=== PATIENT | male | born 1945 | race Caucasian/White ===

== ENCOUNTER 2018-05-20 16:53 | Inpatient (IN) | payer MEDICARE ==
[~2018-05-20] VITALS: Ht 170.2 cm; Wt 82.3 kg
[~2018-05-20 16:53] MED LIST: AZEL6DRO6 OU; LISI10TA7 PO; PHEN100C23 PO; PHEN64.8 PO; ROSU5TAB PO; SOTA80TA PO
[2018-05-20 17:55] LABS: BASOPHILS % (AUTO) 0.2 % (0.0-5.0); EOSINOPHILS % (AUTO) 0.5 % (0.0-8.0); HEMATOCRIT 48.9 % (42-54); LYMPHOCYTES % (AUTO) 6.2 % (21.0-51.0); MEAN CORPUSCULAR HEMOGLOBIN 32.9 pg (27.0-33.0); MEAN CORPUSCULAR VOLUME 99.5 fL (79-99); MONOCYTES % (AUTO) 8.1 % (3.0-13.0); PLATELET COUNT (AUTO) 165 K/uL (130-400); RED BLOOD CELL COUNT(AUTO) 4.92 MIL/uL (4.50-6.20); RED CELL DISTRIBUTION WIDTH 13.8 % (11.0-15.5); WHITE BLOOD COUNT (AUTO) 12.7 K/uL (4.8-10.8)
[2018-05-20 18:06] LABS: CREATININE 1.1 mg/dL (0.5-1.5); INR 1.05 (0.85-1.15); PARTIAL THROMBOPLASTIN TIME 29.4 SEC (26.3-35.5); POTASSIUM 4.4 mmol/L (3.5-5.1)
[2018-05-20 18:09] LABS: ALBUMIN 3.4 g/dL (3.5-5.0); BILIRUBIN,TOTAL 0.3 mg/dL (0.2-1.0); TOTAL PROTEIN, SERUM 7.4 g/dL (6.0-8.3)
[2018-05-20] MEDS ORDERED: TRAMADOL HCL 50 MG TABLET ONE (19:05)
[2018-05-20 22:04] LABS: APPEARANCE,URINE Clear (CLEAR); BILIRUBIN,URINE Negative (NEGATIVE); COLOR,URINE Yellow (YELLOW); GLUCOSE, URINE (UA) Negative (NEGATIVE); KETONES,URINE Negative (NEGATIVE); LEUKOCYTE ESTERASE ,URINE Small (NEGATIVE); NITRATE,URINE Negative (NEGATIVE); OCCULT BLOOD,URINE Large (NEGATIVE); PROTEIN,URINE Trace (NEGATIVE); UROBILINOGEN,URINE 0.2 mg/dL (0.2-1.0)
[2018-05-20 22:16] LABS: BACTERIA,URINE Few /HPF (None Seen); RBC,URINE 26-50 /HPF (0-1); SQUAMOUS EPITHELIAL CELL,UR 0-2 /HPF (0-2); WBC,URINE 0-1 /HPF (0-1)
[2018-05-20] MEDS ORDERED: SODIUM CHLORIDE 0.9% 10 ML VIAL IVP PRN (23:45)
[2018-05-20] MEDS ORDERED: ONDANSETRON HCL MDV 20ML 2 MG/ML VIAL IVP PRN (23:45)
[2018-05-21] VITALS (7 sets, daily range): BP systolic 106–148; BP diastolic 66–75
[2018-05-21] MEDS: MORPHINE SULFATE 2 MG/ML 1ML SYG IVP PRN ×3 (00:33→15:56)
[2018-05-21 04:48] LABS: BASOPHILS % (AUTO) 0.5 % (0.0-5.0); EOSINOPHILS % (AUTO) 2.8 % (0.0-8.0); HEMATOCRIT 45.6 % (42-54); LYMPHOCYTES % (AUTO) 10.3 % (21.0-51.0); MEAN CORPUSCULAR HEMOGLOBIN 33.8 pg (27.0-33.0); MEAN CORPUSCULAR HGB CONC 34.3 g/dL (32.0-36.0); MEAN CORPUSCULAR VOLUME 98.8 fL (79-99); MONOCYTES % (AUTO) 7.2 % (3.0-13.0); NEUTROPHILS % (AUTO) 79.2 % (40.0-77.0); PLATELET COUNT (AUTO) 168 K/uL (130-400); RED BLOOD CELL COUNT(AUTO) 4.62 MIL/uL (4.50-6.20); RED CELL DISTRIBUTION WIDTH 13.9 % (11.0-15.5); WHITE BLOOD COUNT (AUTO) 11.9 K/uL (4.8-10.8)
[2018-05-21 04:58] LABS: INR 1.06 (0.85-1.15); PARTIAL THROMBOPLASTIN TIME 30.2 SEC (26.3-35.5); PROTHROMBIN TIME 11.1 SEC (9.6-11.6)
[2018-05-21 05:15] LABS: ALBUMIN 3.2 g/dL (3.5-5.0); BILIRUBIN,TOTAL 0.4 mg/dL (0.2-1.0); CREATININE 0.9 mg/dL (0.5-1.5)
[2018-05-21] MEDS ORDERED: CLOP75TA32 PO (11:01)
[2018-05-21] MEDS ORDERED: SOTA80TA PO (11:01)
[2018-05-21] MEDS ORDERED: RANI150T7 PO (11:01)
[2018-05-21] MEDS ORDERED: PHEN100C23 PO (11:01)
[2018-05-21] MEDS ORDERED: [UNRECOGNIZED DRUG - OTHER] OU PRN (15:10)
[2018-05-21] MEDS ORDERED: KETOROLAC TROMETHAMINE 30MG/ML IV SCH (16:00)
[2018-05-21] MEDS: RANITIDINE HCL 15 MG/1 ML PO SCH (16:46)
[2018-05-21] MEDS: PHENYTOIN SODIUM 100 MG ERCAP PO SCH (21:00)
[2018-05-21] MEDS: PHENOBARBITAL 64.8 MG PO SCH (21:00)
[2018-05-21] MEDS: SOTALOL HCL 80 MG TABLET PO SCH (21:44)
[2018-05-21] MEDS: TRAMADOL /APAP 37.5MG/325MG TAB PO PRN (21:56)
[2018-05-22 04:00] VITALS: BP 113/68
[2018-05-22] MEDS: TRAMADOL /APAP 37.5MG/325MG TAB PO PRN ×2 (06:35→13:06)
[2018-05-22 08:00] VITALS: BP 111/70
[2018-05-22] MEDS: PHENOBARBITAL 64.8 MG PO SCH ×2 (08:01→14:00)
[2018-05-22] MEDS: PHENYTOIN SODIUM 100 MG ERCAP PO SCH (08:01)
[2018-05-22] MEDS: RANITIDINE HCL 15 MG/1 ML PO SCH ×2 (08:01→18:00)
[2018-05-22] MEDS: ATORVASTATIN CALCIUM 10 MG TABLET PO SCH ×2 (08:03→08:23)
[2018-05-22] MEDS: SOTALOL HCL 80 MG TABLET PO SCH (08:22)
[2018-05-22] MEDS ORDERED: LISINOPRIL 10 MG TABLET PO SCH (09:00)
[2018-05-22] MEDS ORDERED: CLOPIDOGREL BISULFATE 75 MG TAB PO SCH (09:00)
[2018-05-22 11:00] VITALS: BP 107/68
[2018-05-22 16:00] VITALS: BP 113/76
[2018-05-22] MEDS ORDERED: TRAM-355 PO (16:06)
== END 2018-05-22 18:57 | disposition home or self-care (01) | DRG 605 ==
LOC: EDH 16:53 → EDHIP 22:40 → 4BH 23:37
PROVIDERS: ADMIT Hospitalist; ATTEND Hospitalist
DX: S70.01XA Contusion of right hip, initial encounter (principal); I69.351 Hemiplegia and hemiparesis following cerebral infarction affecting right dominant side; W01.0XXA Fall on same level from slipping, tripping and stumbling without subsequent striking against object, initial encounter; I10 Essential (primary) hypertension; Z82.0 Family history of epilepsy and other diseases of the nervous system; I25.10 Atherosclerotic heart disease of native coronary artery without angina pectoris; E78.5 Hyperlipidemia, unspecified; G40.909 Epilepsy, unspecified, not intractable, without status epilepticus; Z82.3 Family history of stroke; Z82.49 Family history of ischemic heart disease and other diseases of the circulatory system; Z88.5 Allergy status to narcotic agent; Y93.89 Activity, other specified; Y92.89 Other specified places as the place of occurrence of the external cause; Y99.8 Other external cause status
CPT/HCPCS: 36415; 71045; 72192; 73070; 73502; 80053; 81001; 85025; 85610; 85730; 97039; J1885

== ENCOUNTER 2020-08-16 06:33 | Inpatient (IN) | payer MEDICARE ==
[~2020-08-16] VITALS: Ht 170.2 cm; Wt 93.0 kg
[~2020-08-16 06:33] MED LIST changes: +CLOP75TA32 PO; +LISI10TA24 PO; -LISI10TA7 PO; +RANI150T7 PO; +TRAM-355 PO
[2020-08-16] MEDS ORDERED: ACETAMINOPHEN 325 MG TAB ONE (07:31)
[2020-08-16] MEDS ORDERED: CEFTRIAXONE 2GM VIAL ONE (07:31)
[2020-08-16] MEDS ORDERED: AZITHROMYCIN 250 MG TABLET PO ONE (07:31)
[2020-08-16 07:48] LABS: BASOPHILS % (AUTO) 0.1 % (0.0-5.0); HEMATOCRIT 48.5 % (42-54); LYMPHOCYTES % (AUTO) 9.5 % (21.0-51.0); MEAN CORPUSCULAR HEMOGLOBIN 32.5 pg (27.0-33.0); MEAN CORPUSCULAR VOLUME 95.7 fL (79-99); MONOCYTES % (AUTO) 7.2 % (3.0-13.0); NEUTROPHILS % (AUTO) 82.7 % (40.0-77.0); PLATELET COUNT (AUTO) 161 K/uL (130-400); RED BLOOD CELL COUNT(AUTO) 5.07 MIL/uL (4.50-6.20); RED CELL DISTRIBUTION WIDTH 13.8 % (11.0-15.5); WHITE BLOOD COUNT (AUTO) 7.8 K/uL (4.8-10.8)
[2020-08-16 08:06] LABS: INR 1.27 (0.85-1.15); PROTHROMBIN TIME 13.3 SEC (9.6-11.6)
[2020-08-16 08:08] LABS: PARTIAL THROMBOPLASTIN TIME 27.9 SEC (26.3-35.5)
[2020-08-16] MEDS: ENOXAPARIN SODIUM 40 MG/0.4 ML SYRINGE SQ SCH (08:24)
[2020-08-16] MEDS ORDERED: 0.9%NACL 1000ML 2,000 ML IV ONE (08:27)
[2020-08-16] MEDS ORDERED: DEXAMETHASONE SOD PHOSPHATE 10MG/ML 1ML VIAL ONE (08:27)
[2020-08-16 08:42] LABS: ABG BASE EXCESS 1.4 mmol/L (-2.0-3.0); ABG HCO3 23.6 mmol/L (21.0-28.0); ABG PCO2 31 mmHg (35-48)
[2020-08-16] MEDS ORDERED: ONDANSETRON 4MG INJ IVP PRN (09:30)
[2020-08-16] MEDS ORDERED: LACTULOSE 20 GM/30 ML UDCUP PO PRN (09:30)
[2020-08-16] MEDS ORDERED: CLONIDINE HCL 0.1 MG TABLET PO PRN (09:30)
[2020-08-16] MEDS ORDERED: ACETAMINOPHEN 650 MG SUPPOSITORY RC PRN (09:30)
[2020-08-16] MEDS ORDERED: ALBUTEROL INHALER 90MCG/INH IH PRN (09:30)
[2020-08-16 10:12] LABS: ALBUMIN 2.6 g/dL (3.5-5.0); BILIRUBIN,TOTAL 0.5 mg/dL (0.2-1.0); POTASSIUM 3.2 mmol/L (3.5-5.1); TOTAL PROTEIN, SERUM 7.3 g/dL (6.0-8.3); TROPONIN I 0.07 ng/mL (0.00-0.06)
[2020-08-16] MEDS: INSULIN HUMULIN R 100 UNIT/ML 3ML SQ SCH ×3 (11:30→21:00)
[2020-08-16] MEDS ORDERED: ALBUTEROL INHALER 90MCG/INH IH ONE (14:56)
[2020-08-16 15:14] LABS: APPEARANCE,URINE Cloudy (CLEAR); BILIRUBIN,URINE Small (NEGATIVE); COLOR,URINE Dark Yellow (YELLOW); GLUCOSE, URINE (UA) Negative (NEGATIVE); KETONES,URINE Trace mg/dL (NEGATIVE); LEUKOCYTE ESTERASE ,URINE Small (NEGATIVE); NITRATE,URINE Negative (NEGATIVE); OCCULT BLOOD,URINE Small (NEGATIVE); PH,URINE 5.5 (5.0-8.0); PROTEIN,URINE 300 mg/dL (NEGATIVE)
[2020-08-16 15:19] LABS: BACTERIA,URINE Few /HPF (None Seen)
[2020-08-16 15:20] LABS: SQUAMOUS EPITHELIAL CELL,UR Few /HPF (0-2)
[2020-08-16] MEDS ORDERED: METOPROLOL TARTRATE 50 MG TAB ONE (16:29)
[2020-08-16] MEDS ORDERED: PHENOBARBITAL 30 MG TAB PO SCH (21:00)
[2020-08-16] MEDS ORDERED: PHENYTOIN SODIUM 100 MG ERCAP PO SCH (21:00)
[2020-08-16] MEDS ORDERED: FAMOTIDINE 20MG TAB PO SCH (21:00)
[2020-08-16] MEDS ORDERED: PHARMACY COMMUNICATION**REMDESIVIR ORDER MISC SCH (21:00)
[2020-08-16] MEDS: METOPROLOL TARTRATE 25 MG TAB PO SCH (21:00)
[2020-08-16] MEDS ORDERED: FAMOTIDINE 20MG TAB ONE (21:45)
[2020-08-16] MEDS ORDERED: ONDANSETRON 4MG INJ ONE (21:45)
[2020-08-16] MEDS ORDERED: ENOXAPARIN SODIUM 40 MG/0.4 ML SYRINGE SQ ONE (21:46)
[2020-08-16] MEDS ORDERED: PHENYTOIN SODIUM 100 MG ERCAP PO ONE (22:42)
[2020-08-17] MEDS ORDERED: METOPROLOL TARTRATE 25 MG TAB ONE ×3 (00:59→15:28)
[2020-08-17] MEDS ORDERED: ACETAMINOPHEN 325 MG TAB ONE (01:09)
[2020-08-17 04:57] LABS: ABG BASE EXCESS -1.1 mmol/L (-2.0-3.0); ABG OXYGEN SATURATION 89.8 % (95.0-99.0); ABG PCO2 33 mmHg (35-48)
[2020-08-17 05:24] LABS: BASOPHILS % (AUTO) 0.1 % (0.0-5.0); HEMATOCRIT 40.7 % (42-54); LYMPHOCYTES % (AUTO) 7.7 % (21.0-51.0); MEAN CORPUSCULAR HEMOGLOBIN 32.1 pg (27.0-33.0); MEAN CORPUSCULAR HGB CONC 34.2 g/dL (32.0-36.0); MONOCYTES % (AUTO) 3.1 % (3.0-13.0); NEUTROPHILS % (AUTO) 88.5 % (40.0-77.0); PLATELET COUNT (AUTO) 180 K/uL (130-400); RED BLOOD CELL COUNT(AUTO) 4.33 MIL/uL (4.50-6.20); RED CELL DISTRIBUTION WIDTH 13.4 % (11.0-15.5); WHITE BLOOD COUNT (AUTO) 12.7 K/uL (4.8-10.8)
[2020-08-17 05:35] LABS: B-TYPE NATRIURETIC PEPTIDE 161 pg/mL (0-100)
[2020-08-17 05:49] LABS: CREATININE 0.9 mg/dL (0.5-1.5); MAGNESIUM 1.8 mg/dL (1.80-2.40); PHOSPHORUS 2.6 mg/dL (2.5-4.9); POTASSIUM 3.1 mmol/L (3.5-5.1); THYROID STIMULATING HORMONE 0.27 uIU/mL (0.36-3.74)
[2020-08-17] MEDS ORDERED: METOPROLOL TARTRATE 1 MG/ML 5ML VIAL IV ONE (06:52)
[2020-08-17] MEDS: INSULIN HUMULIN R 100 UNIT/ML 3ML SQ SCH ×4 (07:30→21:00)
[2020-08-17] MEDS: ASCORBIC ACID 500 MG TAB PO SCH (08:25)
[2020-08-17] MEDS: POLYETHYLENE GLYCOL 3350 17 GM POWD.PACK PO SCH (08:25)
[2020-08-17] MEDS: CEFTRIAXONE 1G VIAL IVP SCH (08:25)
[2020-08-17] MEDS: FUROSEMIDE 20MG VIAL IV SCH (08:26)
[2020-08-17] MEDS: DEXAMETHASONE SOD PHOSPHATE 4 MG/ML 1ML VIAL IVP SCH ×2 (08:26→21:00)
[2020-08-17] MEDS: AZITHROMYCIN 500MG+NS 250ML IV SCH (09:00)
[2020-08-17] MEDS: METOPROLOL TARTRATE 25 MG TAB PO SCH ×2 (09:00→21:00)
[2020-08-17] MEDS: ENOXAPARIN SODIUM 40 MG/0.4 ML SYRINGE SQ SCH ×2 (09:00→21:00)
[2020-08-17] MEDS ORDERED: DEXAMETHASONE SOD PHOSPHATE 4 MG/ML 1ML VIAL IVP SCH (09:00)
[2020-08-17] MEDS: ASPIRIN 81MG CHEW TAB PO SCH (09:00)
[2020-08-17] MEDS: PHENOBARBITAL 1/4 GR TABLET PO SCH ×3 (09:00→21:00)
[2020-08-17] MEDS ORDERED: METOPROLOL TARTRATE 1 MG/ML 5ML VIAL IV PRN (11:00)
[2020-08-17] MEDS ORDERED: DEXAMETHASONE SOD PHOSPHATE 10MG/ML 1ML VIAL ONE (11:10)
[2020-08-17] MEDS ORDERED: ASPIRIN 81MG CHEW TAB ONE (11:10)
[2020-08-17] MEDS ORDERED: PHENYTOIN SODIUM 100 MG ERCAP PO ONE ×2 (11:11→22:12)
[2020-08-17] MEDS ORDERED: ASCORBIC ACID 500 MG TAB ONE (11:11)
[2020-08-17] MEDS ORDERED: ENOXAPARIN SODIUM 40 MG/0.4 ML SYRINGE SQ ONE (11:12)
[2020-08-17] MEDS ORDERED: FAMOTIDINE 20MG TAB ONE (11:12)
[2020-08-17] MEDS ORDERED: POLYETHYLENE GLYCOL 3350 17 GM POWD.PACK ONE (11:12)
[2020-08-17] MEDS ORDERED: AZITHROMYCIN 500MG+NS 250ML 250 ML IV ONE ×2 (11:13→19:26)
[2020-08-17] MEDS ORDERED: DILTIAZEM 125 MG/25 ML INJ 125 MG in 0.9%NACL 100ML 100 ML IV PRN (12:00)
[2020-08-17] MEDS ORDERED: DILTIAZEM 25MG INJ IVP PRN (12:00)
[2020-08-17 14:46] LABS: ABG HCO3 20.4 mmol/L (21.0-28.0); ABG PCO2 29 mmHg (35-48)
[2020-08-17] MEDS ORDERED: PHENOBARBITAL 1/4 GR TABLET PO ONE (15:14)
[2020-08-17] MEDS ORDERED: REMDESIVIR (EUA) 520 200 MG in 0.9% NACL 250ML 250 ML IV ONE (16:00)
[2020-08-17] MEDS ORDERED: COMPOUND IV REFRIGERATED 1 EACH IVSOLN MISC PRN (16:00)
[2020-08-17] MEDS ORDERED: ACETAMINOPHEN 650 MG/20.3 ML UDCUP ONE (16:40)
[2020-08-17] MEDS ORDERED: LIDOCAINE HCL-MPF 1% 2ML VIAL IV PRN ×2 (17:00)
[2020-08-17] MEDS ORDERED: KCL 20 MEQ ERTAB PO PRN (17:00)
[2020-08-17] MEDS ORDERED: MAGNESIUM 2GM PREMIX 50ML 50 ML IV SCH (17:00)
[2020-08-17] MEDS ORDERED: POTASSIUM CHLORIDE 20MEQ/100ML 100 ML IV PRN (17:00)
[2020-08-17] MEDS ORDERED: KCL 20 MEQ ERTAB PO ONE (17:15)
[2020-08-17] MEDS ORDERED: LORAZEPAM 2 MG/ML 1 ML VIAL ONE ×2 (18:40→22:44)
[2020-08-17] MEDS ORDERED: CEFTRIAXONE 1G VIAL ONE (19:26)
[2020-08-17] MEDS ORDERED: DEXAMETHASONE SOD PHOSPHATE 4 MG/ML 1ML VIAL ONE (19:26)
[2020-08-18] VITALS (28 sets, daily range): BP systolic 78–186; BP diastolic 50–120
[2020-08-18] MEDS ORDERED: NALOXONE HCL 0.4 MG/1 ML ML ONE (01:07)
[2020-08-18] MEDS ORDERED: PROPOFOL 1000 MG/100 ML 100 ML IV ONE ×3 (01:31→13:07)
[2020-08-18] MEDS ORDERED: ADENOSINE 6MG VIAL IV ONE (01:41)
[2020-08-18 03:36] LABS: ABG BASE EXCESS -11.1 mmol/L (-2.0-3.0); ABG HCO3 15.5 mmol/L (21.0-28.0); ABG OXYGEN SATURATION 91.1 % (95.0-99.0); ABG PCO2 37 mmHg (35-48)
[2020-08-18] MEDS ORDERED: VECURONIUM 10MG/10ML IV ONE (04:20)
[2020-08-18] MEDS ORDERED: 0.9%NACL 50ML 50 ML IV ONE (04:20)
[2020-08-18] MEDS: FUROSEMIDE 20MG VIAL IV SCH ×2 (04:30→16:30)
[2020-08-18] MEDS ORDERED: DILTIAZEM 125 MG/25 ML INJ IV ONE (05:37)
[2020-08-18] MEDS ORDERED: 0.9%NACL 100ML 100 ML IV ONE (05:40)
[2020-08-18] MEDS: PHARMACY COMMUNICATION MISC SCH (06:00)
[2020-08-18 07:29] LABS: HEMATOCRIT 43.2 % (42-54); MEAN CORPUSCULAR HGB CONC 32.6 g/dL (32.0-36.0); RED BLOOD CELL COUNT(AUTO) 4.41 MIL/uL (4.50-6.20); RED CELL DISTRIBUTION WIDTH 14.2 % (11.0-15.5)
[2020-08-18] MEDS: INSULIN HUMULIN R 100 UNIT/ML 3ML SQ SCH ×4 (07:30→21:00)
[2020-08-18 07:43] LABS: CREATININE 0.9 mg/dL (0.5-1.5); POTASSIUM 4.3 mmol/L (3.5-5.1)
[2020-08-18] MEDS: ASPIRIN 81MG CHEW TAB PO SCH (08:31)
[2020-08-18] MEDS: POLYETHYLENE GLYCOL 3350 17 GM POWD.PACK PO SCH (08:31)
[2020-08-18] MEDS ORDERED: ACETAMINOPHEN 650 MG SUPPOSITORY RC ONE (08:37)
[2020-08-18] MEDS: CEFTRIAXONE 1G VIAL IVP SCH (09:00)
[2020-08-18] MEDS: METOPROLOL TARTRATE 25 MG TAB PO SCH ×2 (09:00→21:00)
[2020-08-18] MEDS: PHENOBARBITAL 1/4 GR TABLET PO SCH ×3 (09:00→21:00)
[2020-08-18] MEDS: DEXAMETHASONE SOD PHOSPHATE 4 MG/ML 1ML VIAL IVP SCH ×2 (09:00→21:00)
[2020-08-18] MEDS: AZITHROMYCIN 500MG+NS 250ML IV SCH (09:00)
[2020-08-18] MEDS: ASCORBIC ACID 500 MG TAB PO SCH (09:00)
[2020-08-18] MEDS: ENOXAPARIN SODIUM 40 MG/0.4 ML SYRINGE SQ SCH ×2 (09:00→21:00)
[2020-08-18] MEDS ORDERED: FENTANYL CITRATE PF 0.05 MG/ML 1,000 MCG in 0.9%NACL 100ML 100 ML IVPB SCH (12:15)
[2020-08-18] MEDS ORDERED: MIDAZOLAM 100MG-0.9% NS 100ML 100ML BAG IV ONE (12:15)
[2020-08-18] MEDS ORDERED: AMIODARONE 150MG VIAL 150 MG in DEXTROSE 5%-WATER 100 ML IV SCH (12:15)
[2020-08-18] MEDS ORDERED: AMIODARONE 900MG VIAL 450 MG in DEXTROSE 5%-WATER 250 ML IV SCH (12:15)
[2020-08-18] MEDS ORDERED: MIDAZOLAM 100MG-0.9% NS 100ML 100 ML IV SCH (12:30)
[2020-08-18 14:09] LABS: BILIRUBIN,DIRECT 0.1 mg/dL (0.0-0.3); BILIRUBIN,TOTAL 0.2 mg/dL (0.2-1.0); TOTAL PROTEIN, SERUM 6.1 g/dL (6.0-8.3)
[2020-08-18 15:34] LABS: CREATININE 1.2 mg/dL (0.5-1.5); POTASSIUM 4.3 mmol/L (3.5-5.1)
[2020-08-18 15:39] LABS: ALBUMIN 1.7 g/dL (3.5-5.0); BILIRUBIN,TOTAL 0.2 mg/dL (0.2-1.0); MAGNESIUM 2.3 mg/dL (1.80-2.40); PHOSPHORUS 2.9 mg/dL (2.5-4.9); TOTAL PROTEIN, SERUM 5.6 g/dL (6.0-8.3)
[2020-08-18] MEDS: FENTANYL 2500MCG+NS 250ML 250 ML IV SCH (16:35)
[2020-08-18] MEDS: REMDESIVIR (EUA) 520 100 MG in 0.9% NACL 250ML 250 ML IV SCH (16:38)
[2020-08-18 17:26] LABS: ABG BASE EXCESS -4.1 mmol/L (-2.0-3.0); ABG OXYGEN SATURATION 97.8 % (95.0-99.0); ABG PCO2 39 mmHg (35-48)
[2020-08-18] MEDS ORDERED: NOREPINEPHRIN 4MG/NS 250ML 250 ML IV SCH (17:45)
[2020-08-18] MEDS ORDERED: NOREPINEPHRIN 4MG/NS 250ML 250 ML IV ONE (17:50)
[2020-08-18] MEDS ORDERED: PHENYLEPHRINE HCL 100 MG in 0.9% NACL 250ML 250 ML IV SCH (18:15)
[2020-08-18] MEDS ORDERED: FAMOTIDINE 20MG VIAL IV ONE (23:14)
[2020-08-19] VITALS (85 sets, daily range): BP systolic 87–171; BP diastolic 41–95
[2020-08-19] MEDS: FUROSEMIDE 20MG VIAL IV SCH ×2 (04:30→15:31)
[2020-08-19 05:17] LABS: HEMATOCRIT 42.7 % (42-54); MEAN CORPUSCULAR HGB CONC 32.6 g/dL (32.0-36.0); MEAN CORPUSCULAR VOLUME 98.2 fL (79-99); RED BLOOD CELL COUNT(AUTO) 4.35 MIL/uL (4.50-6.20); WHITE BLOOD COUNT (AUTO) 11.6 K/uL (4.8-10.8)
[2020-08-19 05:33] LABS: CREATININE 1.1 mg/dL (0.5-1.5); CRP QUANTITATIVE 96.9 mg/L (0.00-9.0); POTASSIUM 3.5 mmol/L (3.5-5.1)
[2020-08-19] MEDS: PHARMACY COMMUNICATION MISC SCH (06:00)
[2020-08-19 06:54] LABS: ABG BASE EXCESS -3.1 mmol/L (-2.0-3.0); ABG HCO3 21.3 mmol/L (21.0-28.0); ABG OXYGEN SATURATION 99.3 % (95.0-99.0); ABG PCO2 37 mmHg (35-48)
[2020-08-19] MEDS: INSULIN HUMULIN R 100 UNIT/ML 3ML SQ SCH ×4 (07:30→21:00)
[2020-08-19] MEDS: PHENOBARBITAL 1/4 GR TABLET PO SCH ×3 (09:00→21:03)
[2020-08-19] MEDS ORDERED: AZITHROMYCIN 500MG+NS 250ML 250 ML IV SCH (09:00)
[2020-08-19] MEDS: AZITHROMYCIN 500MG+NS 250ML IV SCH (09:00)
[2020-08-19] MEDS: FAMOTIDINE 20MG VIAL IV SCH ×2 (09:13→21:04)
[2020-08-19] MEDS: POLYETHYLENE GLYCOL 3350 17 GM POWD.PACK PO SCH (09:14)
[2020-08-19] MEDS: CEFTRIAXONE 1G VIAL IVP SCH (09:14)
[2020-08-19] MEDS: ASPIRIN 81MG CHEW TAB PO SCH (09:14)
[2020-08-19] MEDS: DEXAMETHASONE SOD PHOSPHATE 4 MG/ML 1ML VIAL IVP SCH ×2 (09:14→21:05)
[2020-08-19] MEDS: METOPROLOL TARTRATE 25 MG TAB PO SCH ×2 (09:15→21:03)
[2020-08-19] MEDS: ASCORBIC ACID 500 MG TAB PO SCH (09:15)
[2020-08-19] MEDS: ENOXAPARIN SODIUM 40 MG/0.4 ML SYRINGE SQ SCH ×2 (09:15→21:06)
[2020-08-19] MEDS: FENTANYL 2500MCG+NS 250ML 250 ML IV SCH ×3 (09:46→16:32)
[2020-08-19 16:13] LABS: ALANINE AMINOTRANSFERASE 54 U/L (12-78); ASPARTATE AMINOTRANSFERASE 88 U/L (10-37)
[2020-08-19] MEDS: REMDESIVIR (EUA) 520 100 MG in 0.9% NACL 250ML 250 ML IV SCH (17:02)
[2020-08-19] MEDS: PHENYTOIN 100MG (50MG/ML) INJ 100 MG/2 ML ML IV SCH (21:04)
[2020-08-20] VITALS (47 sets, daily range): BP systolic 95–145; BP diastolic 57–88
[2020-08-20] MEDS: FENTANYL 2500MCG+NS 250ML 250 ML IV SCH ×3 (02:38→17:08)
[2020-08-20 04:00] LABS: ABG BASE EXCESS -3.4 mmol/L (-2.0-3.0); ABG HCO3 21.1 mmol/L (21.0-28.0); ABG OXYGEN SATURATION 91.6 % (95.0-99.0); ABG PCO2 36 mmHg (35-48)
[2020-08-20 04:22] LABS: HEMATOCRIT 41.2 % (42-54); MEAN CORPUSCULAR HEMOGLOBIN 31.8 pg (27.0-33.0); MEAN CORPUSCULAR VOLUME 96.3 fL (79-99); RED BLOOD CELL COUNT(AUTO) 4.28 MIL/uL (4.50-6.20); RED CELL DISTRIBUTION WIDTH 14.2 % (11.0-15.5); WHITE BLOOD COUNT (AUTO) 10.2 K/uL (4.8-10.8)
[2020-08-20 04:40] LABS: CREATININE 1.1 mg/dL (0.5-1.5); POTASSIUM 3.8 mmol/L (3.5-5.1)
[2020-08-20] MEDS: FUROSEMIDE 20MG VIAL IV SCH ×2 (05:44→15:39)
[2020-08-20] MEDS: PHARMACY COMMUNICATION MISC SCH (06:00)
[2020-08-20] MEDS: INSULIN HUMULIN R 100 UNIT/ML 3ML SQ SCH ×4 (06:04→21:00)
[2020-08-20 07:22] LABS: ALBUMIN 1.7 g/dL (3.5-5.0); BILIRUBIN,TOTAL 0.3 mg/dL (0.2-1.0); TOTAL PROTEIN, SERUM 5.9 g/dL (6.0-8.3)
[2020-08-20] MEDS: AZITHROMYCIN 500MG+NS 250ML 250 ML IV SCH (07:30)
[2020-08-20 07:32] LABS: BILIRUBIN,DIRECT 0.1 mg/dL (0.0-0.3)
[2020-08-20] MEDS: AZITHROMYCIN 500MG+NS 250ML IV SCH (09:16)
[2020-08-20] MEDS: PHENOBARBITAL 1/4 GR TABLET PO SCH ×3 (09:16→20:41)
[2020-08-20] MEDS: DEXAMETHASONE SOD PHOSPHATE 4 MG/ML 1ML VIAL IVP SCH ×2 (09:17→20:42)
[2020-08-20] MEDS: METOPROLOL TARTRATE 25 MG TAB PO SCH ×2 (09:17→20:41)
[2020-08-20] MEDS: ASCORBIC ACID 500 MG TAB PO SCH (09:17)
[2020-08-20] MEDS: CEFTRIAXONE 1G VIAL IVP SCH (09:18)
[2020-08-20] MEDS: ASPIRIN 81MG CHEW TAB PO SCH (09:18)
[2020-08-20] MEDS: POLYETHYLENE GLYCOL 3350 17 GM POWD.PACK PO SCH (09:18)
[2020-08-20] MEDS: ENOXAPARIN SODIUM 40 MG/0.4 ML SYRINGE SQ SCH ×2 (09:18→20:41)
[2020-08-20] MEDS: FAMOTIDINE 20MG VIAL IV SCH ×2 (09:18→20:41)
[2020-08-20] MEDS: PHENYTOIN 100MG (50MG/ML) INJ 100 MG/2 ML ML IV SCH ×2 (09:19→20:41)
[2020-08-20] MEDS: REMDESIVIR (EUA) 520 100 MG in 0.9% NACL 250ML 250 ML IV SCH (16:00)
[2020-08-21] VITALS (73 sets, daily range): BP systolic 107–151; BP diastolic 55–91
[2020-08-21] MEDS: AZITHROMYCIN 500MG+NS 250ML 250 ML IV SCH (04:11)
[2020-08-21 04:47] LABS: ABG BASE EXCESS -0.2 mmol/L (-2.0-3.0); ABG HCO3 24.2 mmol/L (21.0-28.0); ABG OXYGEN SATURATION 93.1 % (95.0-99.0); ABG PCO2 39 mmHg (35-48)
[2020-08-21 05:13] LABS: MEAN CORPUSCULAR HEMOGLOBIN 31.7 pg (27.0-33.0); MEAN CORPUSCULAR HGB CONC 33.1 g/dL (32.0-36.0); MEAN CORPUSCULAR VOLUME 95.7 fL (79-99); RED BLOOD CELL COUNT(AUTO) 4.39 MIL/uL (4.50-6.20); WHITE BLOOD COUNT (AUTO) 11.7 K/uL (4.8-10.8)
[2020-08-21] MEDS: FENTANYL 2500MCG+NS 250ML 250 ML IV SCH ×3 (05:27→21:01)
[2020-08-21] MEDS: FUROSEMIDE 20MG VIAL IV SCH ×2 (05:28→15:30)
[2020-08-21 05:53] LABS: CREATININE 1.1 mg/dL (0.5-1.5); CRP QUANTITATIVE 41.8 mg/L (0.00-9.0); POTASSIUM 3.1 mmol/L (3.5-5.1)
[2020-08-21] MEDS: PHARMACY COMMUNICATION MISC SCH (06:00)
[2020-08-21] MEDS: INSULIN HUMULIN R 100 UNIT/ML 3ML SQ SCH ×4 (06:01→20:51)
[2020-08-21] MEDS: AZITHROMYCIN 500MG+NS 250ML IV SCH (09:04)
[2020-08-21] MEDS: ENOXAPARIN SODIUM 40 MG/0.4 ML SYRINGE SQ SCH ×2 (09:05→20:50)
[2020-08-21] MEDS: POLYETHYLENE GLYCOL 3350 17 GM POWD.PACK PO SCH (09:05)
[2020-08-21] MEDS: PHENOBARBITAL 1/4 GR TABLET PO SCH ×3 (09:05→20:50)
[2020-08-21] MEDS: METOPROLOL TARTRATE 25 MG TAB PO SCH ×2 (09:06→20:51)
[2020-08-21] MEDS: ASPIRIN 81MG CHEW TAB PO SCH (09:06)
[2020-08-21] MEDS: ASCORBIC ACID 500 MG TAB PO SCH (09:06)
[2020-08-21] MEDS: DEXAMETHASONE SOD PHOSPHATE 4 MG/ML 1ML VIAL IVP SCH ×2 (09:07→20:51)
[2020-08-21] MEDS: FAMOTIDINE 20MG VIAL IV SCH ×2 (09:07→20:51)
[2020-08-21] MEDS: CEFTRIAXONE 1G VIAL IVP SCH (09:07)
[2020-08-21] MEDS: PHENYTOIN 100MG (50MG/ML) INJ 100 MG/2 ML ML IV SCH ×2 (09:18→21:01)
[2020-08-21 14:10] LABS: ALANINE AMINOTRANSFERASE 46 U/L (12-78); ASPARTATE AMINOTRANSFERASE 61 U/L (10-37)
[2020-08-21] MEDS: REMDESIVIR (EUA) 520 100 MG in 0.9% NACL 250ML 250 ML IV SCH (16:29)
[2020-08-22] VITALS (55 sets, daily range): BP systolic 56–170; BP diastolic 19–96
[2020-08-22 04:16] LABS: ABG BASE EXCESS -0.1 mmol/L (-2.0-3.0); ABG HCO3 23.5 mmol/L (21.0-28.0); ABG OXYGEN SATURATION 91.4 % (95.0-99.0); ABG PCO2 35 mmHg (35-48)
[2020-08-22 05:03] LABS: HEMATOCRIT 42.7 % (42-54); MEAN CORPUSCULAR HEMOGLOBIN 32.3 pg (27.0-33.0); MEAN CORPUSCULAR VOLUME 95.1 fL (79-99); RED BLOOD CELL COUNT(AUTO) 4.49 MIL/uL (4.50-6.20); RED CELL DISTRIBUTION WIDTH 13.8 % (11.0-15.5); WHITE BLOOD COUNT (AUTO) 11.1 K/uL (4.8-10.8)
[2020-08-22] MEDS: FUROSEMIDE 20MG VIAL IV SCH ×2 (05:06→16:16)
[2020-08-22] MEDS: POTASSIUM CHLORIDE 20MEQ/100ML 100 ML IV PRN (05:08)
[2020-08-22] MEDS: INSULIN HUMULIN R 100 UNIT/ML 3ML SQ SCH ×4 (05:27→21:00)
[2020-08-22 05:33] LABS: POTASSIUM 5.2 mmol/L (3.5-5.1)
[2020-08-22] MEDS: AZITHROMYCIN 500MG+NS 250ML 250 ML IV SCH (07:30)
[2020-08-22] MEDS: FENTANYL 2500MCG+NS 250ML 250 ML IV SCH (08:21)
[2020-08-22] MEDS: AZITHROMYCIN 500MG+NS 250ML IV SCH (08:22)
[2020-08-22] MEDS: PHENOBARBITAL 1/4 GR TABLET PO SCH ×3 (08:35→21:01)
[2020-08-22] MEDS: POLYETHYLENE GLYCOL 3350 17 GM POWD.PACK PO SCH (08:35)
[2020-08-22] MEDS: ENOXAPARIN SODIUM 40 MG/0.4 ML SYRINGE SQ SCH ×2 (08:35→21:00)
[2020-08-22] MEDS: FAMOTIDINE 20MG VIAL IV SCH ×2 (08:36→21:01)
[2020-08-22] MEDS: METOPROLOL TARTRATE 25 MG TAB PO SCH ×2 (08:36→21:01)
[2020-08-22] MEDS: ASPIRIN 81MG CHEW TAB PO SCH (08:36)
[2020-08-22] MEDS: ASCORBIC ACID 500 MG TAB PO SCH (08:36)
[2020-08-22] MEDS: DEXAMETHASONE SOD PHOSPHATE 4 MG/ML 1ML VIAL IVP SCH ×2 (08:37→20:59)
[2020-08-22] MEDS: CEFTRIAXONE 1G VIAL IVP SCH (08:37)
[2020-08-22] MEDS: PHENYTOIN 100MG (50MG/ML) INJ 100 MG/2 ML ML IV SCH (09:48)
[2020-08-22] MEDS ORDERED: MIDAZOLAM HCL 1 MG/ML 2ML VIAL ONE ×2 (15:45→15:54)
[2020-08-22] MEDS: MIDAZOLAM 100MG-0.9% NS 100ML 100 ML IV PRN (17:08)
[2020-08-22] MEDS ORDERED: MIDAZOLAM HCL 1 MG/ML 2ML VIAL IVP ONE (17:20)
[2020-08-23] VITALS (55 sets, daily range): BP systolic 104–145; BP diastolic 56–79
[2020-08-23] MEDS: MIDAZOLAM 100MG-0.9% NS 100ML 100 ML IV PRN (01:22)
[2020-08-23] MEDS: FENTANYL 2500MCG+NS 250ML 250 ML IV SCH ×4 (01:24→16:16)
[2020-08-23 04:46] LABS: HEMATOCRIT 40.9 % (42-54); MEAN CORPUSCULAR HEMOGLOBIN 32.1 pg (27.0-33.0); MEAN CORPUSCULAR HGB CONC 33.3 g/dL (32.0-36.0); MEAN CORPUSCULAR VOLUME 96.5 fL (79-99); RED BLOOD CELL COUNT(AUTO) 4.24 MIL/uL (4.50-6.20); RED CELL DISTRIBUTION WIDTH 14.3 % (11.0-15.5); WHITE BLOOD COUNT (AUTO) 9.8 K/uL (4.8-10.8)
[2020-08-23 05:04] LABS: CREATININE 1.1 mg/dL (0.5-1.5); CRP QUANTITATIVE 58.6 mg/L (0.00-9.0); POTASSIUM 3.5 mmol/L (3.5-5.1)
[2020-08-23] MEDS: INSULIN HUMULIN R 100 UNIT/ML 3ML SQ SCH ×3 (07:30→16:30)
[2020-08-23] MEDS: FAMOTIDINE 20MG VIAL IV SCH ×2 (08:26→20:53)
[2020-08-23] MEDS: AZITHROMYCIN 500MG+NS 250ML IV SCH (08:26)
[2020-08-23] MEDS: DEXAMETHASONE SOD PHOSPHATE 4 MG/ML 1ML VIAL IVP SCH ×2 (08:26→20:53)
[2020-08-23] MEDS: CEFTRIAXONE 1G VIAL IVP SCH (08:26)
[2020-08-23] MEDS: POLYETHYLENE GLYCOL 3350 17 GM POWD.PACK PO SCH (08:26)
[2020-08-23] MEDS: METOPROLOL TARTRATE 25 MG TAB PO SCH ×2 (08:26→20:53)
[2020-08-23] MEDS: ASCORBIC ACID 500 MG TAB PO SCH (08:26)
[2020-08-23] MEDS: ASPIRIN 81MG CHEW TAB PO SCH (08:27)
[2020-08-23] MEDS: ENOXAPARIN SODIUM 80 MG/0.8 ML SQ SCH ×2 (08:31→21:04)
[2020-08-23] MEDS: PHENOBARBITAL 1/4 GR TABLET PO SCH ×3 (08:33→20:55)
[2020-08-23] MEDS: AZITHROMYCIN 500MG+NS 250ML 250 ML IV SCH (09:41)
[2020-08-23] MEDS: PHENYTOIN 100MG (50MG/ML) INJ 100 MG/2 ML ML IV SCH ×2 (09:41→20:53)
[2020-08-23] MEDS ORDERED: FENTANYL CITRATE PF 0.05 MG/ML 2,500 MCG in 0.9%NACL 100ML 250 ML IVPB SCH (12:00)
[2020-08-23] MEDS ORDERED: FENTANYL 2500MCG+NS 250ML 250 ML IV SCH (12:00)
[2020-08-23] MEDS: FUROSEMIDE 20MG VIAL IV SCH ×2 (17:04→17:05)
[2020-08-24] VITALS (41 sets, daily range): BP systolic 109–150; BP diastolic 56–81
[2020-08-24] MEDS: FUROSEMIDE 20MG VIAL IV SCH ×2 (04:38→15:51)
[2020-08-24 05:10] LABS: BASOPHILS % (AUTO) 0.3 % (0.0-5.0); EOSINOPHILS % (AUTO) 0.2 % (0.0-8.0); HEMATOCRIT 40.3 % (42-54); LYMPHOCYTES % (AUTO) 4.7 % (21.0-51.0); MEAN CORPUSCULAR HEMOGLOBIN 32.3 pg (27.0-33.0); MEAN CORPUSCULAR VOLUME 97.8 fL (79-99); MONOCYTES % (AUTO) 2.9 % (3.0-13.0); NEUTROPHILS % (AUTO) 89.7 % (40.0-77.0); PLATELET COUNT (AUTO) 253 K/uL (130-400); RED BLOOD CELL COUNT(AUTO) 4.12 MIL/uL (4.50-6.20); RED CELL DISTRIBUTION WIDTH 14.4 % (11.0-15.5); WHITE BLOOD COUNT (AUTO) 9.1 K/uL (4.8-10.8)
[2020-08-24 05:27] LABS: ALBUMIN 1.5 g/dL (3.5-5.0); BILIRUBIN,TOTAL 0.3 mg/dL (0.2-1.0); CREATININE 1.1 mg/dL (0.5-1.5); MAGNESIUM 2.3 mg/dL (1.80-2.40); PHOSPHORUS 3.1 mg/dL (2.5-4.9); POTASSIUM 3.6 mmol/L (3.5-5.1); TOTAL PROTEIN, SERUM 6.6 g/dL (6.0-8.3)
[2020-08-24] MEDS: INSULIN HUMULIN R 100 UNIT/ML 3ML SQ SCH ×4 (05:54→17:55)
[2020-08-24] MEDS: AZITHROMYCIN 500MG+NS 250ML IV SCH (07:33)
[2020-08-24] MEDS: ASCORBIC ACID 500 MG TAB PO SCH (08:27)
[2020-08-24] MEDS: AZITHROMYCIN 500MG+NS 250ML 250 ML IV SCH (08:27)
[2020-08-24] MEDS: ENOXAPARIN SODIUM 80 MG/0.8 ML SQ SCH ×2 (08:28→20:58)
[2020-08-24] MEDS: METOPROLOL TARTRATE 25 MG TAB PO SCH ×2 (08:28→20:59)
[2020-08-24] MEDS: PHENOBARBITAL 1/4 GR TABLET PO SCH ×3 (08:28→20:59)
[2020-08-24] MEDS: CEFTRIAXONE 1G VIAL IVP SCH (08:28)
[2020-08-24] MEDS: FAMOTIDINE 20MG VIAL IV SCH ×2 (08:29→20:58)
[2020-08-24] MEDS: DEXAMETHASONE SOD PHOSPHATE 4 MG/ML 1ML VIAL IVP SCH ×2 (08:29→20:58)
[2020-08-24] MEDS: POLYETHYLENE GLYCOL 3350 17 GM POWD.PACK PO SCH (08:30)
[2020-08-24] MEDS: ASPIRIN 81MG CHEW TAB PO SCH (08:30)
[2020-08-24] MEDS: PHENYTOIN 100MG (50MG/ML) INJ 100 MG/2 ML ML IV SCH ×2 (09:29→20:59)
[2020-08-24] MEDS: FENTANYL 2500MCG+NS 250ML 250 ML IV SCH (10:15)
[2020-08-24] MEDS: MIDAZOLAM 100MG-0.9% NS 100ML 100 ML IV PRN (16:12)
[2020-08-25] VITALS (55 sets, daily range): BP systolic 113–152; BP diastolic 62–86
[2020-08-25 03:44] LABS: ABG BASE EXCESS 6.4 mmol/L (-2.0-3.0); ABG HCO3 30.7 mmol/L (21.0-28.0); ABG PCO2 43 mmHg (35-48)
[2020-08-25] MEDS: FUROSEMIDE 20MG VIAL IV SCH ×2 (03:44→15:37)
[2020-08-25] MEDS: FENTANYL 2500MCG+NS 250ML 250 ML IV SCH ×2 (04:07→23:13)
[2020-08-25 04:37] LABS: BASOPHILS % (AUTO) 0.2 % (0.0-5.0); EOSINOPHILS % (AUTO) 0.7 % (0.0-8.0); HEMATOCRIT 39.8 % (42-54); MEAN CORPUSCULAR HEMOGLOBIN 32.1 pg (27.0-33.0); MEAN CORPUSCULAR HGB CONC 32.4 g/dL (32.0-36.0); MONOCYTES % (AUTO) 2.4 % (3.0-13.0); NEUTROPHILS % (AUTO) 91.2 % (40.0-77.0); PLATELET COUNT (AUTO) 282 K/uL (130-400); RED BLOOD CELL COUNT(AUTO) 4.02 MIL/uL (4.50-6.20); RED CELL DISTRIBUTION WIDTH 14.6 % (11.0-15.5); WHITE BLOOD COUNT (AUTO) 9.2 K/uL (4.8-10.8)
[2020-08-25 04:59] LABS: ALBUMIN 1.6 g/dL (3.5-5.0); BILIRUBIN,TOTAL 0.2 mg/dL (0.2-1.0); CREATININE 1.2 mg/dL (0.5-1.5); MAGNESIUM 2.3 mg/dL (1.80-2.40); PHOSPHORUS 3.1 mg/dL (2.5-4.9); POTASSIUM 3.5 mmol/L (3.5-5.1); TOTAL PROTEIN, SERUM 6.4 g/dL (6.0-8.3)
[2020-08-25] MEDS: INSULIN HUMULIN R 100 UNIT/ML 3ML SQ SCH ×5 (06:00→23:55)
[2020-08-25] MEDS: ASPIRIN 81MG CHEW TAB PO SCH (08:27)
[2020-08-25] MEDS: CEFTRIAXONE 1G VIAL IVP SCH (08:27)
[2020-08-25] MEDS: FAMOTIDINE 20MG VIAL IV SCH ×2 (08:28→20:34)
[2020-08-25] MEDS: PHENOBARBITAL 1/4 GR TABLET PO SCH ×3 (08:28→20:34)
[2020-08-25] MEDS: METOPROLOL TARTRATE 25 MG TAB PO SCH ×2 (08:28→20:35)
[2020-08-25] MEDS: ASCORBIC ACID 500 MG TAB PO SCH (08:28)
[2020-08-25] MEDS: DEXAMETHASONE SOD PHOSPHATE 4 MG/ML 1ML VIAL IVP SCH ×2 (08:28→20:34)
[2020-08-25] MEDS: PHENYTOIN 100MG (50MG/ML) INJ 100 MG/2 ML ML IV SCH ×2 (08:29→20:41)
[2020-08-25] MEDS: POLYETHYLENE GLYCOL 3350 17 GM POWD.PACK PO SCH (08:29)
[2020-08-25] MEDS: AZITHROMYCIN 500MG+NS 250ML IV SCH (08:30)
[2020-08-25] MEDS: ENOXAPARIN SODIUM 80 MG/0.8 ML SQ SCH ×2 (08:30→20:33)
[2020-08-25] MEDS: AZITHROMYCIN 500MG+NS 250ML 250 ML IV SCH (08:31)
[2020-08-25] MEDS: MIDAZOLAM 100MG-0.9% NS 100ML 100 ML IV PRN (23:12)
[2020-08-26] VITALS (71 sets, daily range): BP systolic 89–152; BP diastolic 49–82
[2020-08-26] MEDS: FUROSEMIDE 20MG VIAL IV SCH ×2 (05:34→16:19)
[2020-08-26] MEDS: INSULIN HUMULIN R 100 UNIT/ML 3ML SQ SCH ×3 (06:00→18:00)
[2020-08-26] MEDS: DEXAMETHASONE SOD PHOSPHATE 4 MG/ML 1ML VIAL IVP SCH ×2 (07:53→21:02)
[2020-08-26] MEDS: PHENOBARBITAL 1/4 GR TABLET PO SCH ×3 (08:33→21:04)
[2020-08-26] MEDS: CEFTRIAXONE 1G VIAL IVP SCH (08:33)
[2020-08-26] MEDS: AZITHROMYCIN 500MG+NS 250ML IV SCH (08:33)
[2020-08-26] MEDS: ASPIRIN 81MG CHEW TAB PO SCH (08:33)
[2020-08-26] MEDS: ENOXAPARIN SODIUM 80 MG/0.8 ML SQ SCH ×2 (08:34→23:00)
[2020-08-26] MEDS: FAMOTIDINE 20MG VIAL IV SCH ×2 (08:34→21:01)
[2020-08-26] MEDS: POLYETHYLENE GLYCOL 3350 17 GM POWD.PACK PO SCH (08:35)
[2020-08-26] MEDS: METOPROLOL TARTRATE 25 MG TAB PO SCH ×2 (08:35→21:02)
[2020-08-26] MEDS: PHENYTOIN 100MG (50MG/ML) INJ 100 MG/2 ML ML IV SCH ×2 (08:35→21:02)
[2020-08-26] MEDS: ASCORBIC ACID 500 MG TAB PO SCH (08:35)
[2020-08-26] MEDS: AZITHROMYCIN 500MG+NS 250ML 250 ML IV SCH (09:00)
[2020-08-26] MEDS: ACETAMINOPHEN 325 MG TAB PO PRN (13:14)
[2020-08-26] MEDS: DEXMEDETOMIDINE HCL 400 MCG in 0.9%NACL 100ML 100 ML IV SCH (16:43)
[2020-08-26] MEDS: FENTANYL 2500MCG+NS 250ML 250 ML IV SCH (17:01)
[2020-08-27] VITALS (39 sets, daily range): BP systolic 91–147; BP diastolic 45–76
[2020-08-27] MEDS: FUROSEMIDE 20MG VIAL IV SCH ×2 (03:45→15:48)
[2020-08-27 03:53] LABS: ABG BASE EXCESS 8.4 mmol/L (-2.0-3.0); ABG HCO3 32.8 mmol/L (21.0-28.0); ABG OXYGEN SATURATION 94.4 % (95.0-99.0); ABG PCO2 44 mmHg (35-48)
[2020-08-27 04:22] LABS: HEMATOCRIT 38.8 % (42-54); MEAN CORPUSCULAR HGB CONC 31.2 g/dL (32.0-36.0); MEAN CORPUSCULAR VOLUME 102.6 fL (79-99); RED BLOOD CELL COUNT(AUTO) 3.78 MIL/uL (4.50-6.20); RED CELL DISTRIBUTION WIDTH 14.7 % (11.0-15.5); WHITE BLOOD COUNT (AUTO) 10.9 K/uL (4.8-10.8)
[2020-08-27 05:15] LABS: CREATININE 1.3 mg/dL (0.5-1.5)
[2020-08-27] MEDS: INSULIN HUMULIN R 100 UNIT/ML 3ML SQ SCH ×4 (06:00→18:29)
[2020-08-27] MEDS: ENOXAPARIN SODIUM 80 MG/0.8 ML SQ SCH ×2 (08:06→20:44)
[2020-08-27] MEDS: AZITHROMYCIN 500MG+NS 250ML 250 ML IV SCH (08:06)
[2020-08-27] MEDS: DEXTROSE 5%-WATER 1,000 ML IV SCH (08:06)
[2020-08-27] MEDS: POLYETHYLENE GLYCOL 3350 17 GM POWD.PACK PO SCH (08:07)
[2020-08-27] MEDS: FAMOTIDINE 20MG VIAL IV SCH ×2 (08:07→20:43)
[2020-08-27] MEDS: ASPIRIN 81MG CHEW TAB PO SCH (08:07)
[2020-08-27] MEDS: ASCORBIC ACID 500 MG TAB PO SCH (08:07)
[2020-08-27] MEDS: METOPROLOL TARTRATE 25 MG TAB PO SCH ×2 (08:07→20:43)
[2020-08-27] MEDS: DEXAMETHASONE SOD PHOSPHATE 4 MG/ML 1ML VIAL IVP SCH (08:07)
[2020-08-27] MEDS: CEFTRIAXONE 1G VIAL IVP SCH (08:07)
[2020-08-27] MEDS: PHENYTOIN 100MG (50MG/ML) INJ 100 MG/2 ML ML IV SCH ×2 (08:42→21:08)
[2020-08-27] MEDS: PHENOBARBITAL 1/4 GR TABLET PO SCH ×3 (08:42→20:44)
[2020-08-27] MEDS: MIDAZOLAM 100MG-0.9% NS 100ML 100 ML IV PRN (08:43)
[2020-08-27] MEDS: ACETAMINOPHEN 325 MG TAB PO PRN (11:27)
[2020-08-27] MEDS: FENTANYL 2500MCG+NS 250ML 250 ML IV SCH (13:58)
[2020-08-27] MEDS: SOLU-MEDROL 40MG VIAL IVP SCH ×2 (14:22→21:09)
[2020-08-28] VITALS (33 sets, daily range): BP systolic 101–177; BP diastolic 51–82
[2020-08-28] MEDS: DEXMEDETOMIDINE HCL 400 MCG in 0.9%NACL 100ML 100 ML IV SCH (01:39)
[2020-08-28] MEDS: DEXTROSE 5%-WATER 1,000 ML IV SCH (03:30)
[2020-08-28] MEDS: FUROSEMIDE 20MG VIAL IV SCH (03:36)
[2020-08-28 03:38] LABS: ABG BASE EXCESS 7.7 mmol/L (-2.0-3.0); ABG HCO3 32.9 mmol/L (21.0-28.0); ABG OXYGEN SATURATION 93.7 % (95.0-99.0); ABG PCO2 48 mmHg (35-48)
[2020-08-28 04:29] LABS: BASOPHILS % (AUTO) 0.2 % (0.0-5.0); EOSINOPHILS % (AUTO) 0.3 % (0.0-8.0); HEMATOCRIT 36.4 % (42-54); LYMPHOCYTES % (AUTO) 5.5 % (21.0-51.0); MEAN CORPUSCULAR HEMOGLOBIN 31.8 pg (27.0-33.0); MEAN CORPUSCULAR HGB CONC 31.3 g/dL (32.0-36.0); MEAN CORPUSCULAR VOLUME 101.7 fL (79-99); MONOCYTES % (AUTO) 2.6 % (3.0-13.0); NEUTROPHILS % (AUTO) 90.8 % (40.0-77.0); PLATELET COUNT (AUTO) 209 K/uL (130-400); RED BLOOD CELL COUNT(AUTO) 3.58 MIL/uL (4.50-6.20); RED CELL DISTRIBUTION WIDTH 14.5 % (11.0-15.5); WHITE BLOOD COUNT (AUTO) 15.6 K/uL (4.8-10.8)
[2020-08-28 04:49] LABS: ALBUMIN 1.4 g/dL (3.5-5.0); BILIRUBIN,TOTAL 0.4 mg/dL (0.2-1.0); CREATININE 1.1 mg/dL (0.5-1.5); MAGNESIUM 2.2 mg/dL (1.80-2.40); PHOSPHORUS 3.4 mg/dL (2.5-4.9); TOTAL PROTEIN, SERUM 6.6 g/dL (6.0-8.3)
[2020-08-28] MEDS: SOLU-MEDROL 40MG VIAL IVP SCH ×3 (05:47→20:20)
[2020-08-28] MEDS: INSULIN HUMULIN R 100 UNIT/ML 3ML SQ SCH ×4 (05:50→17:11)
[2020-08-28] MEDS: POLYETHYLENE GLYCOL 3350 17 GM POWD.PACK PO SCH (08:34)
[2020-08-28] MEDS: ENOXAPARIN SODIUM 80 MG/0.8 ML SQ SCH ×2 (08:34→20:12)
[2020-08-28] MEDS: ASPIRIN 81MG CHEW TAB PO SCH (08:35)
[2020-08-28] MEDS: ASCORBIC ACID 500 MG TAB PO SCH (08:35)
[2020-08-28] MEDS: CEFTRIAXONE 1G VIAL IVP SCH (08:35)
[2020-08-28] MEDS: METOPROLOL TARTRATE 25 MG TAB PO SCH ×2 (08:35→20:11)
[2020-08-28] MEDS: PHENOBARBITAL 1/4 GR TABLET PO SCH ×3 (08:35→20:11)
[2020-08-28] MEDS: PHENYTOIN 100MG (50MG/ML) INJ 100 MG/2 ML ML IV SCH ×2 (08:36→20:12)
[2020-08-28] MEDS: FAMOTIDINE 20MG VIAL IV SCH ×2 (11:25→20:12)
[2020-08-28] MEDS ORDERED: VANCOMYCIN PROTOCOL PER PHARMACY IV SCH (11:45)
[2020-08-28] MEDS ORDERED: COMPOUND IV REFRIGERATED 1 EACH IVSOLN MISC PRN (12:00)
[2020-08-28] MEDS: VANCOMYCIN 1G 1.25 GM in 0.9% NACL 250ML 250 ML IV SCH ×2 (12:25→23:05)
[2020-08-28] MEDS: CEFEPIME HCL 2 GM VIAL IVP SCH ×2 (14:29→20:20)
[2020-08-29] VITALS (36 sets, daily range): BP systolic 119–167; BP diastolic 60–88
[2020-08-29] MEDS: METOPROLOL TARTRATE 1 MG/ML 5ML VIAL IV PRN (04:20)
[2020-08-29 04:39] LABS: BASOPHILS % (AUTO) 0.1 % (0.0-5.0); EOSINOPHILS % (AUTO) 0.5 % (0.0-8.0); HEMATOCRIT 37.2 % (42-54); LYMPHOCYTES % (AUTO) 6.7 % (21.0-51.0); MEAN CORPUSCULAR HEMOGLOBIN 31.8 pg (27.0-33.0); MEAN CORPUSCULAR HGB CONC 31.2 g/dL (32.0-36.0); MEAN CORPUSCULAR VOLUME 101.9 fL (79-99); MONOCYTES % (AUTO) 2.7 % (3.0-13.0); NEUTROPHILS % (AUTO) 89.1 % (40.0-77.0); PLATELET COUNT (AUTO) 240 K/uL (130-400); RED BLOOD CELL COUNT(AUTO) 3.65 MIL/uL (4.50-6.20); WHITE BLOOD COUNT (AUTO) 15.4 K/uL (4.8-10.8)
[2020-08-29 05:00] LABS: ALBUMIN 1.4 g/dL (3.5-5.0); BILIRUBIN,TOTAL 0.3 mg/dL (0.2-1.0); CREATININE 1.1 mg/dL (0.5-1.5); MAGNESIUM 2.7 mg/dL (1.80-2.40); PHOSPHORUS 2.4 mg/dL (2.5-4.9); POTASSIUM 3.9 mmol/L (3.5-5.1)
[2020-08-29] MEDS: DEXTROSE 5%-WATER 1,000 ML IV SCH (05:05)
[2020-08-29] MEDS: SOLU-MEDROL 40MG VIAL IVP SCH ×3 (05:06→20:36)
[2020-08-29] MEDS: CEFEPIME HCL 2 GM VIAL IVP SCH ×3 (05:15→22:25)
[2020-08-29] MEDS: INSULIN HUMULIN R 100 UNIT/ML 3ML SQ SCH ×4 (06:00→18:00)
[2020-08-29] MEDS: PHENOBARBITAL 1/4 GR TABLET PO SCH ×3 (08:23→20:34)
[2020-08-29] MEDS: ASCORBIC ACID 500 MG TAB PO SCH (08:24)
[2020-08-29] MEDS: ASPIRIN 81MG CHEW TAB PO SCH (08:24)
[2020-08-29] MEDS: FAMOTIDINE 20MG VIAL IV SCH ×2 (08:24→20:36)
[2020-08-29] MEDS: POLYETHYLENE GLYCOL 3350 17 GM POWD.PACK PO SCH (08:24)
[2020-08-29] MEDS: METOPROLOL TARTRATE 25 MG TAB PO SCH ×2 (08:24→20:36)
[2020-08-29] MEDS: PHENYTOIN 100MG (50MG/ML) INJ 100 MG/2 ML ML IV SCH ×2 (08:25→20:35)
[2020-08-29] MEDS: ENOXAPARIN SODIUM 80 MG/0.8 ML SQ SCH ×2 (08:25→20:35)
[2020-08-29] MEDS: VANCOMYCIN 1G 1.25 GM in 0.9% NACL 250ML 250 ML IV SCH (12:31)
[2020-08-29] MEDS ORDERED: FENTANYL 2500MCG+NS 250ML 250 ML IV ONE (13:49)
[2020-08-30] VITALS (29 sets, daily range): BP systolic 117–190; BP diastolic 64–94
[2020-08-30] MEDS: VANCOMYCIN 1G 1.25 GM in 0.9% NACL 250ML 250 ML IV SCH ×2 (00:29→10:36)
[2020-08-30] MEDS: DEXTROSE 5%-WATER 1,000 ML IV SCH ×2 (00:41→14:39)
[2020-08-30] MEDS: SOLU-MEDROL 40MG VIAL IVP SCH ×3 (05:21→21:11)
[2020-08-30] MEDS: CEFEPIME HCL 2 GM VIAL IVP SCH ×3 (05:21→21:22)
[2020-08-30] MEDS: INSULIN HUMULIN R 100 UNIT/ML 3ML SQ SCH ×4 (05:21→17:47)
[2020-08-30] MEDS: PHENYTOIN 100MG (50MG/ML) INJ 100 MG/2 ML ML IV SCH ×2 (08:52→21:22)
[2020-08-30] MEDS: FAMOTIDINE 20MG VIAL IV SCH ×2 (08:53→21:10)
[2020-08-30] MEDS: ASCORBIC ACID 500 MG TAB PO SCH (08:53)
[2020-08-30] MEDS: METOPROLOL TARTRATE 25 MG TAB PO SCH ×2 (08:53→21:11)
[2020-08-30] MEDS: ASPIRIN 81MG CHEW TAB PO SCH (08:53)
[2020-08-30] MEDS: ENOXAPARIN SODIUM 80 MG/0.8 ML SQ SCH ×2 (08:54→21:11)
[2020-08-30] MEDS: PHENOBARBITAL 1/4 GR TABLET PO SCH ×3 (08:54→21:11)
[2020-08-30] MEDS: POLYETHYLENE GLYCOL 3350 17 GM POWD.PACK PO SCH (09:00)
[2020-08-30 09:57] LABS: HEMATOCRIT 34.1 % (42-54); MEAN CORPUSCULAR HEMOGLOBIN 32.4 pg (27.0-33.0); MEAN CORPUSCULAR HGB CONC 31.4 g/dL (32.0-36.0); MEAN CORPUSCULAR VOLUME 103.3 fL (79-99); RED BLOOD CELL COUNT(AUTO) 3.3 MIL/uL (4.50-6.20); RED CELL DISTRIBUTION WIDTH 13.8 % (11.0-15.5); WHITE BLOOD COUNT (AUTO) 12.1 K/uL (4.8-10.8)
[2020-08-30 10:05] LABS: ABG BASE EXCESS 2.4 mmol/L (-2.0-3.0); ABG HCO3 25.6 mmol/L (21.0-28.0); ABG OXYGEN SATURATION 97.9 % (95.0-99.0); ABG PCO2 35 mmHg (35-48)
[2020-08-30 10:11] LABS: CREATININE 0.9 mg/dL (0.5-1.5); POTASSIUM 3.9 mmol/L (3.5-5.1)
[2020-08-31] VITALS (30 sets, daily range): BP systolic 82–169; BP diastolic 47–80
[2020-08-31] MEDS: VANCOMYCIN 1G 1.25 GM in 0.9% NACL 250ML 250 ML IV SCH ×2 (01:21→12:28)
[2020-08-31] MEDS: FUROSEMIDE 40MG VIAL IV SCH ×2 (03:51→19:54)
[2020-08-31] MEDS ORDERED: FENTANYL 2500MCG+NS 250ML 250 ML IV ONE (03:52)
[2020-08-31] MEDS: FENTANYL CITRATE PF 0.05 MG/ML 2,500 MCG in 0.9%NACL 100ML 250 ML IVPB SCH (03:56)
[2020-08-31 04:42] LABS: HEMATOCRIT 33.3 % (42-54); MEAN CORPUSCULAR HEMOGLOBIN 31.6 pg (27.0-33.0); MEAN CORPUSCULAR HGB CONC 31.8 g/dL (32.0-36.0); MEAN CORPUSCULAR VOLUME 99.4 fL (79-99); POTASSIUM 4.1 mmol/L (3.5-5.1); RED BLOOD CELL COUNT(AUTO) 3.35 MIL/uL (4.50-6.20); RED CELL DISTRIBUTION WIDTH 13.5 % (11.0-15.5); WHITE BLOOD COUNT (AUTO) 16.6 K/uL (4.8-10.8)
[2020-08-31] MEDS: SOLU-MEDROL 40MG VIAL IVP SCH ×3 (05:31→20:41)
[2020-08-31] MEDS: CEFEPIME HCL 2 GM VIAL IVP SCH ×2 (05:32→13:59)
[2020-08-31] MEDS: INSULIN HUMULIN R 100 UNIT/ML 3ML SQ SCH ×4 (06:00→17:49)
[2020-08-31 07:28] LABS: ABG BASE EXCESS -0.1 mmol/L (-2.0-3.0); ABG HCO3 23.4 mmol/L (21.0-28.0); ABG PCO2 35 mmHg (35-48)
[2020-08-31] MEDS ORDERED: DEXMEDETOMIDINE HCL 400 MCG in 0.9%NACL 100ML 100 ML IV SCH (08:00)
[2020-08-31] MEDS: FUROSEMIDE 20MG VIAL IV SCH ×2 (08:52→20:41)
[2020-08-31] MEDS: FAMOTIDINE 20MG VIAL IV SCH ×2 (08:52→20:42)
[2020-08-31] MEDS: ASPIRIN 81MG CHEW TAB PO SCH (08:53)
[2020-08-31] MEDS: ASCORBIC ACID 500 MG TAB PO SCH (08:53)
[2020-08-31] MEDS: PHENOBARBITAL 1/4 GR TABLET PO SCH ×3 (08:53→20:42)
[2020-08-31] MEDS: METOPROLOL TARTRATE 25 MG TAB PO SCH ×2 (08:54→20:43)
[2020-08-31] MEDS: ENOXAPARIN SODIUM 80 MG/0.8 ML SQ SCH ×2 (08:54→20:43)
[2020-08-31] MEDS: POLYETHYLENE GLYCOL 3350 17 GM POWD.PACK PO SCH (08:56)
[2020-08-31] MEDS: PHENYTOIN 100MG (50MG/ML) INJ 100 MG/2 ML ML IV SCH ×2 (09:11→20:42)
[2020-08-31] MEDS: DEXTROSE 5%-WATER 1,000 ML IV SCH (12:28)
[2020-08-31] MEDS: ARTIFICAL TEARS SOL 15 ML OU SCH (23:00)
[2020-08-31] MEDS: CHLORHEXIDINE GLUCONATE 473 ML MOUTHWASH MM SCH (23:00)
[2020-09-01] VITALS (35 sets, daily range): BP systolic 90–185; BP diastolic 46–107
[2020-09-01] MEDS: VANCOMYCIN 1G 1.25 GM in 0.9% NACL 250ML 250 ML IV SCH ×2
[2020-09-01] MEDS: ARTIFICAL TEARS SOL 15 ML OU SCH ×6 (03:00→22:09)
[2020-09-01 04:22] LABS: HEMATOCRIT 31.1 % (42-54); MEAN CORPUSCULAR HEMOGLOBIN 31.7 pg (27.0-33.0); MEAN CORPUSCULAR HGB CONC 32.2 g/dL (32.0-36.0); MEAN CORPUSCULAR VOLUME 98.7 fL (79-99); RED BLOOD CELL COUNT(AUTO) 3.15 MIL/uL (4.50-6.20); RED CELL DISTRIBUTION WIDTH 13.2 % (11.0-15.5); WHITE BLOOD COUNT (AUTO) 17.3 K/uL (4.8-10.8)
[2020-09-01 04:31] LABS: CREATININE 0.8 mg/dL (0.5-1.5); POTASSIUM 3.8 mmol/L (3.5-5.1)
[2020-09-01] MEDS: CHLORHEXIDINE GLUCONATE 473 ML MOUTHWASH MM SCH ×4 (05:00→22:09)
[2020-09-01] MEDS: CEFEPIME HCL 2 GM VIAL IVP SCH ×4 (05:44→21:15)
[2020-09-01] MEDS: SOLU-MEDROL 40MG VIAL IVP SCH ×3 (05:45→21:15)
[2020-09-01] MEDS: INSULIN HUMULIN R 100 UNIT/ML 3ML SQ SCH ×4 (06:00→17:40)
[2020-09-01] MEDS ORDERED: FENTANYL 2500MCG+NS 250ML 250 ML IV ONE (06:47)
[2020-09-01] MEDS ORDERED: FENTANYL CITRATE PF 0.05 MG/ML 1,000 MCG in 0.9%NACL 100ML 250 ML IVPB SCH (07:15)
[2020-09-01] MEDS: FAMOTIDINE 20MG VIAL IV SCH ×2 (08:15→21:09)
[2020-09-01] MEDS: FUROSEMIDE 20MG VIAL IV SCH (08:15)
[2020-09-01] MEDS: ASPIRIN 81MG CHEW TAB PO SCH (08:15)
[2020-09-01] MEDS: ASCORBIC ACID 500 MG TAB PO SCH (08:16)
[2020-09-01] MEDS: ENOXAPARIN SODIUM 80 MG/0.8 ML SQ SCH ×2 (08:16→21:12)
[2020-09-01] MEDS: METOPROLOL TARTRATE 25 MG TAB PO SCH ×2 (08:17→21:09)
[2020-09-01] MEDS: DEXTROSE 5%-WATER 1,000 ML IV SCH (08:18)
[2020-09-01] MEDS: POLYETHYLENE GLYCOL 3350 17 GM POWD.PACK PO SCH (08:19)
[2020-09-01] MEDS: PHENOBARBITAL 1/4 GR TABLET PO SCH ×3 (08:44→21:18)
[2020-09-01] MEDS: PHENYTOIN 100MG (50MG/ML) INJ 100 MG/2 ML ML IV SCH ×2 (08:52→21:09)
[2020-09-01] MEDS: FUROSEMIDE 40MG VIAL IV SCH ×3 (09:45→23:21)
[2020-09-01] MEDS ORDERED: LABETALOL 20MG SYG IV ONE (14:26)
[2020-09-01] MEDS ORDERED: MIDAZOLAM HCL SYRUP 10 MG/5 ML 5ML BOTTLE PO PRN (18:00)
[2020-09-01] MEDS: ALBUMIN (HUMAN) 25% 100 ML IV SCH (18:00)
[2020-09-02] VITALS (24 sets, daily range): BP systolic 87–192; BP diastolic 42–86
[2020-09-02] MEDS: ARTIFICAL TEARS SOL 15 ML OU SCH ×6 (03:08→22:20)
[2020-09-02] MEDS: DEXTROSE 5%-WATER 1,000 ML IV SCH (03:30)
[2020-09-02 04:36] LABS: BASOPHILS % (AUTO) 0.3 % (0.0-5.0); EOSINOPHILS % (AUTO) 0.8 % (0.0-8.0); HEMATOCRIT 26.9 % (42-54); LYMPHOCYTES % (AUTO) 6.7 % (21.0-51.0); MEAN CORPUSCULAR HEMOGLOBIN 32.9 pg (27.0-33.0); MEAN CORPUSCULAR HGB CONC 33.8 g/dL (32.0-36.0); MEAN CORPUSCULAR VOLUME 97.1 fL (79-99); MONOCYTES % (AUTO) 3.3 % (3.0-13.0); NEUTROPHILS % (AUTO) 86.3 % (40.0-77.0); PLATELET COUNT (AUTO) 235 K/uL (130-400); RED BLOOD CELL COUNT(AUTO) 2.77 MIL/uL (4.50-6.20); RED CELL DISTRIBUTION WIDTH 12.9 % (11.0-15.5); WHITE BLOOD COUNT (AUTO) 15.6 K/uL (4.8-10.8)
[2020-09-02] MEDS: CHLORHEXIDINE GLUCONATE 473 ML MOUTHWASH MM SCH ×4 (04:50→22:20)
[2020-09-02 05:12] LABS: ALBUMIN 1.4 g/dL (3.5-5.0); BILIRUBIN,TOTAL 0.2 mg/dL (0.2-1.0); POTASSIUM 3.8 mmol/L (3.5-5.1); TOTAL PROTEIN, SERUM 6.3 g/dL (6.0-8.3)
[2020-09-02] MEDS: CEFEPIME HCL 2 GM VIAL IVP SCH ×3 (05:14→22:20)
[2020-09-02] MEDS: SOLU-MEDROL 40MG VIAL IVP SCH ×4 (05:14→20:41)
[2020-09-02] MEDS: ALBUMIN (HUMAN) 25% 100 ML IV SCH ×2 (05:15→18:17)
[2020-09-02] MEDS: POTASSIUM CHLORIDE 10% ELIXIR 20 MEQ/15 ML UDCUP PO PRN (05:17)
[2020-09-02] MEDS: INSULIN HUMULIN R 100 UNIT/ML 3ML SQ SCH ×4 (06:00→17:32)
[2020-09-02] MEDS: POTASSIUM CHLORIDE 20MEQ/100ML 100 ML IV PRN (07:07)
[2020-09-02 07:44] LABS: ABG BASE EXCESS 2.5 mmol/L (-2.0-3.0); ABG PCO2 37 mmHg (35-48)
[2020-09-02] MEDS: POLYETHYLENE GLYCOL 3350 17 GM POWD.PACK PO SCH (08:21)
[2020-09-02] MEDS: PHENOBARBITAL 1/4 GR TABLET PO SCH ×3 (08:21→20:41)
[2020-09-02] MEDS: ASCORBIC ACID 500 MG TAB PO SCH (08:21)
[2020-09-02] MEDS: FAMOTIDINE 20MG VIAL IV SCH ×2 (08:22→20:40)
[2020-09-02] MEDS: PHENYTOIN 100MG (50MG/ML) INJ 100 MG/2 ML ML IV SCH ×2 (08:22→20:42)
[2020-09-02] MEDS: ASPIRIN 81MG CHEW TAB PO SCH (08:23)
[2020-09-02] MEDS: ENOXAPARIN SODIUM 80 MG/0.8 ML SQ SCH (08:25)
[2020-09-02] MEDS: METOPROLOL TARTRATE 25 MG TAB PO SCH ×2 (09:00→20:41)
[2020-09-02] MEDS: FUROSEMIDE 40MG VIAL IV SCH ×2 (09:56→21:49)
[2020-09-02] MEDS: VANCOMYCIN 1G 1.25 GM in 0.9% NACL 250ML 250 ML IV SCH ×2 (13:33→23:14)
[2020-09-02] MEDS: DIAZEPAM 5 MG TABLET PO PRN (13:43)
[2020-09-02] MEDS: METOPROLOL TARTRATE 1 MG/ML 5ML VIAL IV PRN (17:18)
[2020-09-02] MEDS: ENOXAPARIN SODIUM 40 MG/0.4 ML SYRINGE SQ SCH (20:43)
[2020-09-03] VITALS (26 sets, daily range): BP systolic 81–178; BP diastolic 43–83
[2020-09-03] MEDS: ARTIFICAL TEARS SOL 15 ML OU SCH ×6 (02:47→22:17)
[2020-09-03] MEDS: CHLORHEXIDINE GLUCONATE 473 ML MOUTHWASH MM SCH ×4 (04:16→23:18)
[2020-09-03 04:56] LABS: HEMATOCRIT 30.5 % (42-54); MEAN CORPUSCULAR HEMOGLOBIN 31.9 pg (27.0-33.0); MEAN CORPUSCULAR HGB CONC 32.5 g/dL (32.0-36.0); MEAN CORPUSCULAR VOLUME 98.4 fL (79-99); RED BLOOD CELL COUNT(AUTO) 3.1 MIL/uL (4.50-6.20); RED CELL DISTRIBUTION WIDTH 13.2 % (11.0-15.5); WHITE BLOOD COUNT (AUTO) 12.1 K/uL (4.8-10.8)
[2020-09-03 05:08] LABS: CREATININE 0.9 mg/dL (0.5-1.5); MAGNESIUM 1.9 mg/dL (1.80-2.40); PHOSPHORUS 2.8 mg/dL (2.5-4.9); POTASSIUM 3.7 mmol/L (3.5-5.1)
[2020-09-03] MEDS: CEFEPIME HCL 2 GM VIAL IVP SCH ×3 (05:32→21:16)
[2020-09-03] MEDS: ALBUMIN (HUMAN) 25% 100 ML IV SCH (05:32)
[2020-09-03] MEDS: POTASSIUM CHLORIDE 10% ELIXIR 20 MEQ/15 ML UDCUP PO PRN ×2 (05:40→08:10)
[2020-09-03] MEDS: INSULIN HUMULIN R 100 UNIT/ML 3ML SQ SCH ×4 (06:00→17:50)
[2020-09-03] MEDS: PHENOBARBITAL 1/4 GR TABLET PO SCH ×3 (08:10→21:15)
[2020-09-03] MEDS: POLYETHYLENE GLYCOL 3350 17 GM POWD.PACK PO SCH (08:10)
[2020-09-03] MEDS: ASCORBIC ACID 500 MG TAB PO SCH (08:11)
[2020-09-03] MEDS: DIAZEPAM 5 MG TABLET PO PRN ×2 (08:11→22:30)
[2020-09-03] MEDS: METOPROLOL TARTRATE 25 MG TAB PO SCH ×2 (08:11→21:15)
[2020-09-03] MEDS: FAMOTIDINE 20MG VIAL IV SCH ×2 (08:11→21:15)
[2020-09-03] MEDS: SOLU-MEDROL 40MG VIAL IVP SCH ×2 (08:11→21:15)
[2020-09-03] MEDS: ASPIRIN 81MG CHEW TAB PO SCH (08:11)
[2020-09-03] MEDS: ENOXAPARIN SODIUM 40 MG/0.4 ML SYRINGE SQ SCH ×2 (08:12→21:20)
[2020-09-03] MEDS: PHENYTOIN 100MG (50MG/ML) INJ 100 MG/2 ML ML IV SCH ×2 (08:13→21:15)
[2020-09-03] MEDS: FUROSEMIDE 40MG VIAL IV SCH ×2 (09:27→21:16)
[2020-09-03 10:31] LABS: ABG BASE EXCESS 1.8 mmol/L (-2.0-3.0); ABG HCO3 26.6 mmol/L (21.0-28.0); ABG OXYGEN SATURATION 92.5 % (95.0-99.0); ABG PCO2 43 mmHg (35-48)
[2020-09-03] MEDS ORDERED: DILTIAZEM 125 MG/25 ML INJ 125 MG in 0.9%NACL 100ML 100 ML IV SCH (11:45)
[2020-09-03] MEDS: METOPROLOL TARTRATE 1 MG/ML 5ML VIAL IV PRN (11:45)
[2020-09-03] MEDS: MIDAZOLAM HCL SYRUP 10 MG/5 ML 5ML BOTTLE NG PRN ×3 (11:45→21:47)
[2020-09-03] MEDS: DEXMEDETOMIDINE HCL 400 MCG in 0.9%NACL 100ML 100 ML IV SCH (15:20)
[2020-09-03] MEDS: FENTANYL CITRATE PF 0.05 MG/ML 2,500 MCG in 0.9%NACL 100ML 250 ML IVPB SCH (15:21)
[2020-09-03 16:59] LABS: ABG BASE EXCESS 1.4 mmol/L (-2.0-3.0); ABG HCO3 25.5 mmol/L (21.0-28.0); ABG OXYGEN SATURATION 97.6 % (95.0-99.0); ABG PCO2 39 mmHg (35-48)
[2020-09-03] MEDS: MIDAZOLAM 100MG-0.9% NS 100ML 100 ML IV PRN (22:12)
[2020-09-04] VITALS (30 sets, daily range): BP systolic 86–182; BP diastolic 48–77
[2020-09-04] MEDS ORDERED: DEXTROSE 5%-WATER 1,000 ML IV ONE (01:18)
[2020-09-04] MEDS ORDERED: ALBUMIN (HUMAN) 25% 100 ML IV ONE (01:54)
[2020-09-04] MEDS ORDERED: ALBUMIN (HUMAN) 25% 100 ML IV PRN (02:45)
[2020-09-04] MEDS: ARTIFICAL TEARS SOL 15 ML OU SCH ×6 (03:02→23:44)
[2020-09-04 04:15] LABS: HEMATOCRIT 24.2 % (42-54); MEAN CORPUSCULAR HEMOGLOBIN 31.8 pg (27.0-33.0); MEAN CORPUSCULAR HGB CONC 32.2 g/dL (32.0-36.0); MEAN CORPUSCULAR VOLUME 98.8 fL (79-99); RED BLOOD CELL COUNT(AUTO) 2.45 MIL/uL (4.50-6.20); RED CELL DISTRIBUTION WIDTH 13.6 % (11.0-15.5); WHITE BLOOD COUNT (AUTO) 11.4 K/uL (4.8-10.8)
[2020-09-04 04:31] LABS: CREATININE 1.1 mg/dL (0.5-1.5); POTASSIUM 4.8 mmol/L (3.5-5.1)
[2020-09-04] MEDS: INSULIN HUMULIN R 100 UNIT/ML 3ML SQ SCH ×4 (06:00→17:53)
[2020-09-04] MEDS: CHLORHEXIDINE GLUCONATE 473 ML MOUTHWASH MM SCH ×4 (06:27→23:00)
[2020-09-04] MEDS: CEFEPIME HCL 2 GM VIAL IVP SCH ×2 (06:27→14:36)
[2020-09-04] MEDS: METOPROLOL TARTRATE 1 MG/ML 5ML VIAL IV PRN (06:46)
[2020-09-04 07:08] LABS: ABG BASE EXCESS 3.7 mmol/L (-2.0-3.0); ABG HCO3 26.8 mmol/L (21.0-28.0); ABG OXYGEN SATURATION 89.3 % (95.0-99.0); ABG PCO2 36 mmHg (35-48)
[2020-09-04] MEDS: SOLU-MEDROL 40MG VIAL IVP SCH ×2 (08:13→23:43)
[2020-09-04] MEDS: METOPROLOL TARTRATE 25 MG TAB PO SCH ×2 (08:13→23:44)
[2020-09-04] MEDS: PHENYTOIN 100MG (50MG/ML) INJ 100 MG/2 ML ML IV SCH (08:13)
[2020-09-04] MEDS: ASCORBIC ACID 500 MG TAB PO SCH (08:13)
[2020-09-04] MEDS: ASPIRIN 81MG CHEW TAB PO SCH (08:13)
[2020-09-04] MEDS: PHENOBARBITAL 1/4 GR TABLET PO SCH ×3 (08:13→21:00)
[2020-09-04] MEDS: ENOXAPARIN SODIUM 40 MG/0.4 ML SYRINGE SQ SCH ×2 (08:14→23:43)
[2020-09-04] MEDS: FAMOTIDINE 20MG VIAL IV SCH ×2 (08:14→23:44)
[2020-09-04] MEDS: POLYETHYLENE GLYCOL 3350 17 GM POWD.PACK PO SCH (09:00)
[2020-09-04] MEDS: FUROSEMIDE 40MG VIAL IV SCH ×2 (09:51→23:44)
[2020-09-04] MEDS: DEXMEDETOMIDINE HCL 400 MCG in 0.9%NACL 100ML 100 ML IV SCH ×4 (09:55→21:10)
[2020-09-04] MEDS: VANCOMYCIN 1G/250ML KIT 250 ML IV SCH ×2 (10:12→23:45)
[2020-09-04] MEDS: FENTANYL 2500MCG+NS 250ML 250 ML IV SCH (10:48)
[2020-09-04] MEDS: MIDAZOLAM 100MG-0.9% NS 100ML 100 ML IV PRN (10:48)
[2020-09-05] VITALS (44 sets, daily range): BP systolic 71–226; BP diastolic 23–95
[2020-09-05] MEDS: PHENYTOIN 100MG (50MG/ML) INJ 100 MG/2 ML ML IV SCH ×3 (00:10→22:05)
[2020-09-05 01:51] LABS: ABG BASE EXCESS -2.2 mmol/L (-2.0-3.0); ABG HCO3 22.1 mmol/L (21.0-28.0); ABG OXYGEN SATURATION 77.8 % (95.0-99.0); ABG PCO2 36 mmHg (35-48)
[2020-09-05] MEDS ORDERED: SODIUM BICARB 50MEQ 50ML VIAL 50 ML ONE (02:04)
[2020-09-05] MEDS ORDERED: LORAZEPAM 2 MG/ML 1 ML VIAL ONE (02:06)
[2020-09-05] MEDS ORDERED: PROPOFOL 1000 MG/100 ML IV PRN (02:15)
[2020-09-05] MEDS ORDERED: SODIUM BICARB 50MEQ 50ML VIAL IV ONE (02:15)
[2020-09-05] MEDS ORDERED: PROPOFOL 1000 MG/100 ML 100 ML IV ONE (02:15)
[2020-09-05] MEDS ORDERED: LORAZEPAM 2 MG/ML 1 ML VIAL IVP ONE (02:15)
[2020-09-05] MEDS: MIDAZOLAM 100MG-0.9% NS 100ML 100 ML IV PRN (02:38)
[2020-09-05 03:23] LABS: ABG BASE EXCESS -0.3 mmol/L (-2.0-3.0); ABG HCO3 23.9 mmol/L (21.0-28.0); ABG OXYGEN SATURATION 87.8 % (95.0-99.0); ABG PCO2 38 mmHg (35-48)
[2020-09-05 03:52] LABS: HEMATOCRIT 21.3 % (42-54); MEAN CORPUSCULAR HEMOGLOBIN 32.7 pg (27.0-33.0); MEAN CORPUSCULAR HGB CONC 32.9 g/dL (32.0-36.0); MEAN CORPUSCULAR VOLUME 99.5 fL (79-99); RED BLOOD CELL COUNT(AUTO) 2.14 MIL/uL (4.50-6.20); RED CELL DISTRIBUTION WIDTH 14.3 % (11.0-15.5); WHITE BLOOD COUNT (AUTO) 11.8 K/uL (4.8-10.8)
[2020-09-05] MEDS ORDERED: PROPOFOL 1000 MG/100 ML 100 ML IV SCH (04:00)
[2020-09-05 04:08] LABS: CREATININE 1.9 mg/dL (0.5-1.5); PHOSPHORUS 4.7 mg/dL (2.5-4.9); POTASSIUM 5.2 mmol/L (3.5-5.1)
[2020-09-05] MEDS: INSULIN HUMULIN R 100 UNIT/ML 3ML SQ SCH ×4 (06:00→16:36)
[2020-09-05] MEDS: CEFEPIME HCL 2 GM VIAL IVP SCH ×3 (06:03→21:53)
[2020-09-05] MEDS: ARTIFICAL TEARS SOL 15 ML OU SCH ×5 (06:04→22:04)
[2020-09-05] MEDS: DEXMEDETOMIDINE HCL 400 MCG in 0.9%NACL 100ML 100 ML IV SCH ×3 (06:12→16:38)
[2020-09-05] MEDS: FENTANYL 2500MCG+NS 250ML 250 ML IV SCH (07:30)
[2020-09-05] MEDS: SOLU-MEDROL 40MG VIAL IVP SCH ×2 (09:14→21:54)
[2020-09-05] MEDS: FUROSEMIDE 40MG VIAL IV SCH (09:14)
[2020-09-05] MEDS: POLYETHYLENE GLYCOL 3350 17 GM POWD.PACK PO SCH (09:14)
[2020-09-05] MEDS: ASCORBIC ACID 500 MG TAB PO SCH (09:14)
[2020-09-05] MEDS: ENOXAPARIN SODIUM 40 MG/0.4 ML SYRINGE SQ SCH ×2 (09:15→21:54)
[2020-09-05] MEDS: FAMOTIDINE 20MG VIAL IV SCH ×2 (09:15→21:54)
[2020-09-05] MEDS: ASPIRIN 81MG CHEW TAB PO SCH (09:15)
[2020-09-05] MEDS: METOPROLOL TARTRATE 25 MG TAB PO SCH ×2 (09:16→21:00)
[2020-09-05] MEDS: VANCOMYCIN 1G/250ML KIT 250 ML IV SCH (09:17)
[2020-09-05] MEDS: CHLORHEXIDINE GLUCONATE 473 ML MOUTHWASH MM SCH ×4 (11:43→22:04)
[2020-09-05] MEDS: PHENOBARBITAL 1/4 GR TABLET PO SCH ×3 (11:43→21:55)
[2020-09-05] MEDS ORDERED: CEFEPIME HCL 1 GM VIAL ONE (15:50)
[2020-09-05] MEDS ORDERED: NOREPINEPHRIN 4MG/NS 250ML 250 ML IV ONE (18:41)
[2020-09-05] MEDS ORDERED: NOREPINEPHRIN 4MG/NS 250ML 250 ML IV SCH (18:45)
[2020-09-05] MEDS ORDERED: DOPAMINE 800MG/D5 250ML 250 ML IV PRN (18:45)
[2020-09-05 18:49] LABS: ABG BASE EXCESS -7.7 mmol/L (-2.0-3.0); ABG HCO3 18.4 mmol/L (21.0-28.0); ABG OXYGEN SATURATION 87.2 % (95.0-99.0); ABG PCO2 40 mmHg (35-48)
[2020-09-05] MEDS ORDERED: 0.9%NACL 1000ML 1,000 ML IV SCH (20:15)
[2020-09-05] MEDS ORDERED: NOREPINEPHRINE BITARTRATE 8 MG in 0.9% NACL 250ML 250 ML IV SCH (20:15)
[2020-09-05] MEDS ORDERED: DILTIAZEM 125 MG/25 ML INJ 125 MG in 0.9%NACL 100ML 100 ML IV PRN (20:15)
[2020-09-05] MEDS ORDERED: DILTIAZEM 25MG INJ IVP PRN (20:15)
[2020-09-05] MEDS ORDERED: 0.9%NACL 1000ML 1,000 ML IV ONE (20:20)
[2020-09-05] MEDS ORDERED: 0.9% NACL 250ML 250 ML IV ONE (20:56)
[2020-09-05] MEDS ORDERED: DOPAMINE HCL 400 MG/D5%-WATER 250 ML IV ONE (23:25)
[2020-09-05 23:27] LABS: ABG BASE EXCESS -21.3 mmol/L (-2.0-3.0); ABG HCO3 11.3 mmol/L (21.0-28.0); ABG OXYGEN SATURATION 18.8 % (95.0-99.0); ABG PCO2 60 mmHg (35-48)
[2020-09-06] MEDS ORDERED: EPINEPHRINE 1 MG/ML 30ML VIAL IJ ONE (00:19)
[2020-09-06] MEDS ORDERED: FAMO20TA8 PO (01:31)
[2020-09-06] MEDS ORDERED: 0.9%NACL 1000ML 1,000 ML IV SCH (20:15)
== END 2020-09-06 00:33 | disposition expired | DRG 207 ==
LOC: EDH 06:33 → EDHIP 09:26 → 2CV 08-18 10:06 → 2DH 09-04 18:50 → 2CH 09-04 20:23
PROVIDERS: ADMIT Internal Medicine Critical Care Medicine; ATTEND Internal Medicine Critical Care Medicine
PROC: 5A0935A Assistance with Respiratory Ventilation, Less than 24 Consecutive Hours, High Flow/Velocity Cannula (ICD-10-PCS; 2020-08-16)
PROC: 02HV33Z Insertion of Infusion Device into Superior Vena Cava, Percutaneous Approach (ICD-10-PCS; 2020-08-17)
PROC: 5A1955Z Respiratory Ventilation, Greater than 96 Consecutive Hours (ICD-10-PCS; principal; 2020-08-18)
PROC: XW033E5 Introduction of Remdesivir Anti-infective into Peripheral Vein, Percutaneous Approach, New Technology Group 5 (ICD-10-PCS; 2020-08-21)
PROC: 0BH17EZ Insertion of Endotracheal Airway into Trachea, Via Natural or Artificial Opening (ICD-10-PCS; 2020-08-22)
PROC: 0BH17EZ Insertion of Endotracheal Airway into Trachea, Via Natural or Artificial Opening (ICD-10-PCS; 2020-08-22)
PROC: 5A1955Z Respiratory Ventilation, Greater than 96 Consecutive Hours (ICD-10-PCS; 2020-08-22)
PROC: 0BH17EZ Insertion of Endotracheal Airway into Trachea, Via Natural or Artificial Opening (ICD-10-PCS; 2020-08-30)
PROC: 5A1955Z Respiratory Ventilation, Greater than 96 Consecutive Hours (ICD-10-PCS; 2020-08-30)
PROC: 30233N1 Transfusion of Nonautologous Red Blood Cells into Peripheral Vein, Percutaneous Approach (ICD-10-PCS; 2020-09-05)
DX: U07.1 COVID-19 (principal); J80 Acute respiratory distress syndrome; J12.82 Pneumonia due to coronavirus disease 2019; G92 Toxic encephalopathy; E87.2 Acidosis; E44.0 Moderate protein-calorie malnutrition; N39.0 Urinary tract infection, site not specified; I47.1 Supraventricular tachycardia; I69.351 Hemiplegia and hemiparesis following cerebral infarction affecting right dominant side; E87.0 Hyperosmolality and hypernatremia; E87.1 Hypo-osmolality and hyponatremia; N19 Unspecified kidney failure; I48.0 Paroxysmal atrial fibrillation; I10 Essential (primary) hypertension; E78.5 Hyperlipidemia, unspecified; G40.909 Epilepsy, unspecified, not intractable, without status epilepticus; R53.81 Other malaise; E87.70 Fluid overload, unspecified; D64.9 Anemia, unspecified; Z68.32 Body mass index [BMI] 32.0-32.9, adult; Z88.5 Allergy status to narcotic agent; Z79.01 Long term (current) use of anticoagulants
CPT/HCPCS: 31500; 36415; 36430; 36600; 71045; 71250; 80048; 80053; 80076; 80185; 80202; 81001; 82435; 82550; 82728; 82803; 82947; 82948; 83605; 83615; 83735; 83874; 83880; 84100; 84132; 84145; 84295; 84443; 84450; 84460; 84484; 85018; 85025; 85027; 85378; 85610; 85730; 86140; 86850; 86900; 86901; 86923; 87040; 87071; 87077; 87088; 87186; 87205; 87426; 87804; 92950; 93005; 93306; 94002; 94003; 94660; C1751; C1894; G0378; J0153; J0171; J0282; J0456; J0692; J0696; J1100; J1165; J1265; J1650; J1940; J2060; J2250; J2310; J2370; J2405; J2704; J2920; J3010; J3370; J3480; J3490; J7030; J7050; J7060; J7070; P9016; P9046; U0003